=== PATIENT | male | born 1950 | race Caucasian/White ===

== ENCOUNTER 2019-05-02 16:31 | Emergency (ER) | payer OTHER ==
[2019-05-02] MEDS ORDERED: cefTRIAXone(*) 1 GM in NS 0.9% 50 ML* 50 ML IVPB ONE (17:13)
--- NOTE | 2019-05-02 17:13 | ED ---
Throat Pain/Nasal Congestion - HPI Summary HPI Summary: This pt is a 68 y/o male presenting to [facility] c/o pruritic and red right ear s/p radiation therapy. Pt reports he had radiation to his right ear for basal cell CA on 04/21/19. He notes that at that time his right ear was only red. Today he states his right ear is draining pus and is itchy. Denies any right ear pain. Denies fever, chills, hearing loss. Pt won't see his radiation doctor until 05/27/19. - History of Current Complaint Chief Complaint: EDEarPain Time Seen by Provider: 05/02/19 17:02 Hx Obtained From: Patient Onset/Duration: Lasting Days Severity: Moderate Associated Signs And Symptoms: Positive: Negative Cough: None Related History: Other (Noted In Comments) - s/p radiation therapy - Allergies/Home Medications Allergies/Adverse Reactions: Allergies Allergy/AdvReac Type Severity Reaction Status Date / Time No Known Allergies Allergy Verified 03/10/13 18:29 PMH/Surg Hx/FS Hx/Imm Hx Endocrine/Hematology History: Reports: Hx Diabetes Cardiovascular History: Reports: Hx Cardiac Arrest - 5x, Hx Hypertension, Other Cardiovascular Problems/Disorders - cardiac stents Denies: Hx Congestive Heart Failure GI History: Reports: Hx Diverticulosis, Other GI Disorders - present abd pain and constipation History: Denies: Hx Kidney Stones Sensory History: Reports: Hx Contacts or Glasses, Hx Hearing Problem Opthamlomology History: Reports: Hx Contacts or Glasses - Cancer History Cancer Type, Location and Year: Basal cell CA - Surgical History Surgical History: Yes Surgery Procedure, Year, and Place: cardiac stents - Immunization History Date of Tetanus Vaccine: 2011 Date of Influenza Vaccine: 2011 Infectious Disease History: No Infectious Disease History: Denies: Hx Hepatitis, Hx Shingles, Hx Tuberculosis, Traveled Outside the [place] in Last 30 Days - Family History Known Family History: Positive: Cardiac Disease - Father with CAD - Social History Alcohol Use: None Substance Use Type: Reports: None Smoking Status (MU): Never Smoked Tobacco Review of Systems Positive: Chills - POSITIVE: right ear is itchy, right ear redness, right ear blackened. Negative: Fever Cardiovascular: Negative Respiratory: Negative Gastrointestinal: Negative All Other Systems Reviewed And Are Negative: Yes Physical Exam - Summary Physical Exam Summary: VITAL SIGNS: Reviewed. GENERAL: Patient is a well-developed and nourished male who is lying comfortable in the stretcher. Patient is not in any acute respiratory distress. HEAD AND FACE: No signs of trauma. No ecchymosis, hematomas or skull depressions. No sinus tenderness. EYES: PERRLA, EOMI x 2, No injected conjunctiva, no nystagmus. EARS: Hearing grossly intact. Left ear: Ear canal and tympanic membrane are within normal limits. Right ear: erythematous area below the ear and below the ear lobe with yellow discharge. The ear canal and tympanic membrane are both normal. MOUTH: Oropharynx within normal limits. NECK: Supple, trachea is midline, no adenopathy, no JVD, no carotid bruit, no c- spine tenderness, neck with full ROM. CHEST: Symmetric, no tenderness at palpation. LUNGS: Clear to auscultation bilaterally. No wheezing or crackles. CVS: Regular rate and rhythm, S1 and S2 present, no murmurs or gallops appreciated. ABDOMEN: Soft, non-tender. No signs of distention. No rebound, no guarding, and no masses palpated. Bowel sounds are normal. EXTREMITIES: FROM in all major joints, no edema, no cyanosis or clubbing. NEURO: Alert and oriented x 3. No acute neurological deficits. Speech is normal and follows commands. SKIN: Dry and warm. Triage Information Reviewed: Yes Vital Signs On Initial Exam: Initial Vitals Temp Pulse Resp BP Pulse Ox 97.8 F 71 17 126/74 97 05/02/19 16:55 05/02/19 16:55 05/02/19 16:55 05/02/19 16:55 05/02/19 16:55 Vital Signs Reviewed: Yes Procedures - Sedation Patient Received Moderate/Deep Sedation with Procedure: No Diagnostics - Vital Signs Vital Signs Temp Pulse Resp BP Pulse Ox 05/02/19 16:55 97.8 F 71 17 126/74 97 - Laboratory Result Diagrams: 05/02/19 17:28 05/02/19 17:28 Lab Statement: Any lab studies that have been ordered have been reviewed, and results considered in the medical decision making process. EENT Course/Dx - Course Assessment/Plan: This pt is a 68 y/o male presenting to [facility] c/o pruritic and red right ear s/p radiation therapy. Pt reports he had radiation to his right ear for basal cell CA on 04/21/19. He notes that at that time his right ear was only red. Today he states his right ear is draining pus and is itchy. Denies any right ear pain. Denies fever, chills, hearing loss. Pt won't see his radiation doctor until 05/27/19. Blood test results without any significant abnormality except for glucose 152, and CRP of 9.1. A wound culture was sent to the lab. It seems that the patient has a localized cellulitis. The patient was given 1 dose of Rocephin in the ED. He will be discharged home with follow- up from his PCP and his radiation oncologist in the next 2-3 days. He will be given a prescription for Keflex. Patient was also recommended to return to the emergency room if any of the symptoms worsen. The patient understands and agrees. I discussed all the findings and test results with the patient. Patient was instructed to return to the emergency room immediately if any of the symptoms return worsens. Plan of care was discussed with the patient and understands and agrees. All questions were answered at patient satisfaction. There were no further complaints or concerns. Lung exam before discharge: CTA B/ L. Good air exchange. No wheezing or crackles heard. CVS: S1 and S2 present. No murmurs appreciated. Patient is alert and oriented x 3. Patient is hemodynamically stable. Patient will be discharged home with follow up from his PCP in the next 2-3 days. - Diagnoses Provider Diagnoses: Cellulitis Discharge ED - Sign-Out/Discharge Documenting (check all that apply): Patient Departure - Discharge home - Discharge Plan Condition: Stable Disposition: HOME Prescriptions: Cephalexin CAP* [Keflex CAP*] 500 mg PO QID #400 cap Patient Education Materials: Cellulitis (ED) Referrals: Erin Wyatt PA [Physician Lead Pl Sql Developer] - Additional Instructions: Follow up with your primary care provider in 2-3 days. RETURN TO THE ED FOR ANY WORSENING OR NEW SYMPTOMS. - Billing Disposition and Condition Condition: STABLE Disposition: Home - Attestation Statements Document Initiated by Scribe: Yes Documenting Scribe: Senait Campos Provider For Whom Scribe is Documenting (Include Credential): Pilo Zepeda MD Scribe Attestation: ISenait, scribed for Pilo Zepeda MD on 05/02/19 at 1830. Scribe Documentation Reviewed: Yes Provider Attestation: The documentation as recorded by the scribe, Senait Campos accurately reflects the service I personally performed and the decisions made by me, Pilo Zepeda MD Status of Scribe Document: Viewed
[2019-05-02 17:46] LABS: INR 0.96 (0.82-1.09)
[2019-05-02 17:48] LABS: ABS Eosinophils 0.3 10^3/ul (0-0.6); ABS Lymphocytes 1.1 10^3/ul (1.0-4.8); ABS Monocytes 0.7 10^3/ul (0-0.8); ABS Neutrophils 5.2 10^3/ul (1.5-7.7); Eosinophil % 3.7 %; Hematocrit 43 % (42-52); Hemoglobin 14.4 g/dL (14.0-18.0); Lymphocyte % 14.7 %; Mean Corpuscular HGB Conc 34 g/dL (31-36); Mean Corpuscular Hemoglobin 30 pg (27-31); Mean Corpuscular Volume 87 fL (80-94); Mean Platelet Volume 6.6 fL (7.4-10.4); Nucleated Red Blood Cells % 0.1; Platelet Count 173 10^3/uL (150-450); Red Blood Count 4.88 10^6 /uL (4.18-5.48); Red Cell Distribution Width 13 % (10-15); White Blood Count 7.3 10^3/uL (3.5-10.8)
[2019-05-02 18:01] LABS: Albumin 4.2 g/dL (3.2-5.2); BUN/Creatinine Ratio 12.9 (8-20); Calcium 9.2 mg/dL (8.6-10.3); EGFR African American 108.1 (>60); EGFR Non-African American 89.4 (>60); Total Protein 6.7 g/dL (6.4-8.9)
[2019-05-02 18:02] LABS: Albumin/Globulin Ratio 1.7 (1-3); C Reactive Protein 9.15 mg/L (<8.01); Globulin 2.5 g/dL (2-4); Total Bilirubin 0.3 mg/dL (0.2-1.0)
[2019-05-02 18:42] VITALS: BP 126/81
== END 2019-05-02 18:40 | disposition home or self-care (01) ==
LOC: ED 16:31
DX: H60.11 Cellulitis of right external ear (principal); C44.212 Basal cell carcinoma of skin of right ear and external auricular canal; E11.9 Type 2 diabetes mellitus without complications; I10 Essential (primary) hypertension; Z95.5 Presence of coronary angioplasty implant and graft
CPT/HCPCS: 36415; 80053; 83605; 84484; 85025; 85610; 86140; 87070; 87205; 87640; 87641; 96365; 99282; J0696